=== PATIENT | male | born 1980 | race Caucasian/White ===

== ENCOUNTER 2019-07-26 09:31 | Emergency (ER) | payer OTHER ==
[2019-07-26 10:29] VITALS: BP 143/87
--- NOTE | 2019-07-26 10:48 | UC ---
Eye Complaint HPI - HPI Summary HPI Summary: Pt presents with c/o left eye redness, clear darinage X 1-2 days. Pt states that one of his children was diagnosed with viral conjunctivitis and is concerned that he may have it now. Pt states that his child was given antibiotic eye drops. - History of Current Complaint Chief Complaint: UCEye Stated Complaint: LEFT EYE IRRITATION Time Seen by Provider: 07/26/19 10:39 Hx Obtained From: Patient Onset/Duration: Sudden Onset, Lasting Days, Still Present Timing: Constant Severity Initially: Mild Severity Currently: Mild Pain Intensity: 0 Aggravating Factor(s): Nothing Alleviating Factor(s): Nothing Associated Signs And Symptoms: Positive: Drainage (Clear) - Risk Factors Penetrating Injury Risk Factor: Negative Globe Rupture Risk Factors: Negative Acute Glaucoma Risk Factors: Negative Optic Artery Occlusion Risk Factors: Negative - Allergies/Home Medications Allergies/Adverse Reactions: Allergies Allergy/AdvReac Type Severity Reaction Status Date / Time No Known Allergies Allergy Verified 07/26/19 10:23 Home Medications: Home Medications Bupropion XL* [Wellbutrin XL *] 300 mg QPM 07/26/19 [History Confirmed 07/26/19] Loratadine/Pseudoephedrine [Loratadine-D 12 Hour Tablet] 1 tab DAILY 07/26/19 [ History Confirmed 07/26/19] Omeprazole 1 tab DAILY 07/26/19 [History Confirmed 07/26/19] amLODIPine TAB* [Norvasc 5 mg TAB*] 10 mg PO DAILY 07/26/19 [History Confirmed 07/26/19] PMH/Surg Hx/FS Hx/Imm Hx Previously Healthy: Yes - Surgical History Surgical History: Yes Surgery Procedure, Year, and Place: cyst removed lower back 2001. LEFT FINGER REPAIR. RIGHT KNEE PREPATELLAR BURSA REMOVED. KIDNEY STONE SHOCK THERAPY SEVERAL [id number] REMOVED - Family History Known Family History: Positive: Cardiac Disease - Social History Occupation: Employed Full-time Lives: With Family Alcohol Use: None Substance Use Type: None Smoking Status (MU): Never Smoked Tobacco Have You Smoked in the Last Year: No Review of Systems All Other Systems Reviewed And Are Negative: Yes Constitutional: Positive: Negative Skin: Positive: Negative Eyes: Positive: Drainage - left eye clear, Eye Redness - left ENT: Positive: Negative Respiratory: Positive: Negative Cardiovascular: Positive: Negative Gastrointestinal: Positive: Negative Genitourinary: Positive: Negative Motor: Positive: Negative Neurovascular: Positive: Negative Musculoskeletal: Positive: Negative Neurological: Positive: Negative Psychological: Positive: Negative Is Patient Immunocompromised?: No Physical Exam Triage Information Reviewed: Yes Appearance: Well-Appearing Vital Signs: Initial Vital Signs Temp 98.4 F 07/26/19 10:25 Pulse 64 07/26/19 10:25 Resp 16 07/26/19 10:25 BP 143/87 07/26/19 10:25 Pulse Ox 99 07/26/19 10:25 Vital Signs Reviewed: Yes Eyes: Positive: Conjunctiva Inflamed - left, Discharge - left, clear ENT Exam: Normal ENT: Positive: Hearing grossly normal Respiratory: Positive: No respiratory distress Musculoskeletal Exam: Normal Neurological Exam: Normal Psychological Exam: Normal Skin Exam: Normal Eye Complaint Course/Dx - Course Course Of Treatment: I discussed with the pt that I thought he had viral conjunctivitis and did not need an antibiotic eye drop. Pt stated that his child who was diagnosed with viral conjunctivitis was given and antibiotic eye drop and he would like one as well. - Differential Dx/Diagnosis Differential Diagnosis/HQI/PQRI: Conjunctivitis Provider Diagnosis: Conjunctivitis, left eye Discharge ED - Sign-Out/Discharge Documenting (check all that apply): Patient Departure All imaging exams completed and their final reports reviewed: No Studies - Discharge Plan Condition: Stable Disposition: HOME Prescriptions: Polymyx/Trimethoprim OPTH* [Polytrim OPHTH*] 2 drop LEFT EYE Q3H 7 Days #1 btl Patient Education Materials: Conjunctivitis (ED) Referrals: [facility] [place] [facility] [Outside] - If Needed No Primary Care Phys,NOPCP [Primary Care Provider] - - Billing Disposition and Condition Condition: STABLE Disposition: Home
== END 2019-07-26 11:00 | disposition home or self-care (01) ==
LOC: UCCORT 09:31
DX: H10.9 Unspecified conjunctivitis (principal)
CPT/HCPCS: 99212; G0463